=== PATIENT | male | born 1990 | race Caucasian/White ===

== ENCOUNTER 2020-02-21 05:32 | Emergency (ER) | payer OTHER ==
[~2020-02-21] VITALS: Ht 180.3 cm; Wt 76.4 kg
[2020-02-21 05:36] VITALS: BP 128/73
[2020-02-21 06:04] LABS: MICROSCOPIC NOT IND
--- NOTE | 2020-02-21 06:56 | NUR ---
Report given to Margarita WEINBERG.
--- NOTE | 2020-02-21 07:13 | NUR ---
LATE NOTE ENTRY DUE TO PT CARE. Received bedside report from LENARD Cevallos. All questions answered. Pt away at ultrasound.
--- NOTE | 2020-02-21 07:14 | NUR ---
Pt return on gurney from ultrasound. No acute distress noticed. Call light within reach.
== END 2020-02-21 08:22 | disposition home or self-care (01) ==
LOC: ED 06:17
DX: N50.811 Right testicular pain (principal)
CPT/HCPCS: 76870; 81003; 87491; 87591; 99284